=== PATIENT | female | born 1985 | race Caucasian/White ===

== ENCOUNTER 2024-01-15 17:04 | Emergency (ER) | payer MEDICAID, OTHER | END 2024-01-15 18:00 | disposition home or self-care (01) | LOC: BURERS 17:04 | DX: S92.252A Displaced fracture of navicular [scaphoid] of left foot, initial encounter for closed fracture (principal); S93.602A Unspecified sprain of left foot, initial encounter; W18.42XA Slipping, tripping and stumbling without falling due to stepping into hole or opening, initial encounter ==